=== PATIENT | female | born 1975 | race Caucasian/White ===

== ENCOUNTER 2018-10-07 14:15 | Inpatient (IN) | payer MEDICAID ==
[~2018-10-07] VITALS: Ht 162.6 cm; Wt 93.5 kg
--- NOTE | ~2018-10-07 | MORECARE ---
CASE MANAGEMENT DISCHARGE SUMMARY PATIENT: TEE LECHUGA UNIT: [id number] ADM DATE: 10/07/18 AGE: 42 : [birth year] SEX: F ROOM/BED: D.[facility] [place] AUTHOR: LEANNA WALKER PHYSICIAN: REFERRING PHYSICIAN: GARETT KIRK MD DATE OF SERVICE: 10/13/18 Discharge Plan Patient Name: TEE LECHUGA [facility] [facility] 1975 Planned Disposition: Home Anticipated Discharge Date: Discharge Date: Expected LOS: Initial Reviewer: [email or web address] Initial Review Date: 10/13/2018 Generated: 10/13/18 4:53 pm DCPIA - Discharge Planning Initial Assessment Updated by [email or web address]: Giovanny Trinh on 10/13/18 3:49 pm * Is the patient Alert and Oriented? Yes * How many steps to enter\exit or inside your home? * PCP DR. MAHMOOD [place] * Pharmacy [facility] * Preadmission Environment Home with Family * ADLs Independent * Equipment None * Other Equipment NO MEDICAL EQUIPMENT PROVIDER PREFERENCE * List name and contact numbers for known caregivers / representatives who currently or will assist patient after discharge: GARETT HAMILTON, BRIAN, * Verbal permission to speak to the caregivers and representatives has been obtained from the patient. Yes * Community resources currently utilized Other * Please name any agencies selected above. OUTPATIENT DIALYSIS, [facility], [facility], [address], [place] * Additional services required to return to the preadmission environment? No * Can the patient safely return to the preadmission environment? Yes * Has this patient been hospitalized within the prior 30 days at any hospital? No Last DP export: 10/13/18 2:46 p Patient Name: TEE LECHUGA Page 08155 at 1554 All edits/amendments must be made on the electronic document DICTATION DATE: 10/13/181552 RESIDENTIAL LIFE DIRECTOR: HASMUKH 10/13/18 155 RPT#: [id number] DC DATE: STATUS: ADM IN [facility] [address] [facility] [place] [address] END OF REPORT
--- NOTE | ~2018-10-07 | MORECARE ---
CASE MANAGEMENT DISCHARGE SUMMARY PATIENT: TEE LECHUGA UNIT: [id number] ADM DATE: 10/07/18 AGE: 42 : [birth year] SEX: F ROOM/BED: D.[facility] AUTHOR: LEANNA WALKER PHYSICIAN: REFERRING PHYSICIAN: GARETT KIRK MD DATE OF SERVICE: 10/13/18 Discharge Plan Patient Name: TEE LECHUGA Facility: [facility]:[place] : 1975 Planned Disposition: Home Anticipated Discharge Date: Discharge Date: Expected LOS: Initial Reviewer: [email or web address] Initial Review Date: 10/13/2018 Generated: 10/13/18 4:36 pm Patient Name: TEE LECHUGA Page 28216 at 1536 All edits/amendments must be made on the electronic document DICTATION DATE: 10/13/18 1535 MATERIALS HANDLING COORDINATOR: HASMUKH 10/13/18 1535 RPT#: [id number] DC DATE: STATUS: ADM IN [facility] [address] [place] [address] END OF REPORT
--- NOTE | ~2018-10-07 | EC ---
PATIENT:TEE LECHUGA DATE OF SERVICE: 10/07/18 SEX: F MEDICAL RECORD: [id number] DATE OF : [birth year] LOCATION:D.M2 D.211 AGE OF PATIENT: 42 ADMISSION DATE: 10/07/18 REFERRING PHYSICIAN: INTERPRETING PHYSICIAN: SINDY COHEN MD ECHOCARDIOGRAM REPORT ECHO CHARGES 4 ECHO COMPLETE Date: 10/14/18 CLINICAL DIAGNOSIS: HIGH TEMP/ FDC CATHETER IN RIGHT ATRIUM ASSESS FOR VEGATATION ECHOCARDIOGRAPHIC MEASUREMENTS (adult normal given) AC root (d.<3.7cm) 3.0 cm LV Septum d (<1.2 cm> 1.2 cm Valve Excursion 1.3 cm LV Septum (systole) 1.5 cm Left Atria (s.<4.0cm> 3.3 cm LVPW d(<1.2cm) 1.5 cm RV (d.<2.3cm) 5.2 cm LVPW (sytole) 1.7 cm LV diastole(<5.6CM) 5.6 cm MV E-F(>70mm/sec) cm LV systole 4.0 cm LVOT Diameter 1.9 cm MV exc.(>10mm) 1.9 cm Est.ejection fraction (50-75%) % DOPPLER: LVIT cm/sec A 85.0 cm/sec E 74.0 cm/sec LA cm/sec RVSP 38 mmHg LVOT 91 cm/sec AOP1/2T m/s Asc. Ao 136 cm/sec RVOT 86 cm/sec RA cm/sec PA 38 cm/sec AV Gradient Peak 7.42 mmHg AV Mean 5.14 mmHg AV Area 2.0 cm MV Gradient Peak 3.36 mmHg MV Mean 1.32 mmHg MV Area cm COMMENTS: Barrel Loader And Cleaner: Lorri LU Porcelain Mixer: 1 Dr. Cohen TAPE# PACS Pericardial Effusion N DATE OF SERVICE: 10/14/2018 PROCEDURE: Echocardiogram. FINDINGS: 1. Left ventricular chamber size is within normal limits. Left ventricular systolic function is normal. Overall ejection fraction estimated at 55%. 2. Left atrium, right atrium, and right ventricle chamber sizes are within normal limits. ECHOCARDIOGRAM REPORT [id number] TEE LECHUGA 3. Valvular structures have normal structure and motion. 4. Doppler interrogation reveals mild mitral regurgitation, mild tricuspid regurgitation, no other valvular insufficiency or stenosis. 5. No evidence of pericardial effusion or left ventricular thrombus. Pulmonary systolic pressure is estimated 38 mmHg. 6. No evidence of vegetative endocarditis. TRANSINT:[id number] Voice Confirmation ID: [id number] DOCUMENT ID: [id number] SINDY COHEN MD at 1108 CC: [id number] DICTATION DATE: 10/14/18 1603 MATERIAL HANDLER FLOORPERSON: 10/15/[address] [facility] [address] [place] [id number]
--- NOTE | ~2018-10-07 | OP ---
PATIENT NAME: TEE LECHUGA MEDICAL RECORD: [id number] :[birth year] LOCATION:D. D.2112 ADMISSION DATE:10/07/18 SURGEON: NORMA COOPER MD DATE OF OPERATION: 10/12/2018 SURGEON: Norma Cooper MD PREOPERATIVE DIAGNOSIS: End-stage renal disease. POSTOPERATIVE DIAGNOSIS: End-stage renal disease. PROCEDURES PERFORMED: 1. Insertion of tunneled left internal jugular HemoSplit catheter with fluoroscopic guidance. 2. An ultrasound-guided left internal jugular venous access. 3. Removal of right IJ Trialysis line. ANESTHESIA: General. COMPLICATIONS: None. SPECIMENS: None. Case was clean. OPERATIVE COURSE: After consent was obtained, the patient was taken to the operating room and placed in the supine position on the operating table. Next, general anesthesia was given. Timeout was taken to confirm the correct patient and procedure. The right and left chest and neck were prepped and draped in typical sterile fashion. The sutures were removed and the Trialysis line. The right IJ catheter was removed intact. A sterile gauze dressing and Tegaderms were placed. Pressure was held in the right internal jugular vein for approximately 5 minutes. At this time, the ultrasound probe was used to identify the left internal jugular vein and left common carotid artery. Under ultrasound guidance, the left internal jugular vein was cannulated. A guidewire was placed. The guidewire was advanced under fluoroscopy to the atriocaval junction. A skin incision was made to the needle stick site. The dilators were then passed over the wire in a standard Seldinger fashion. The dilator with breakaway sheath was then passed over the wire in a standard Seldinger fashion. Local anesthetic was injected into the left chest wall. Skin incision with a #15-blade scalpel, the HemoSplit device was tunneled from the skin incision site to the needle stick site. The dilator and wire were removed within the breakaway sheath. Under fluoroscopic guidance, the HemoSplit catheter was advanced through the breakaway sheath at the atriocaval junction and the breakaway sheath was removed. The needle stick site was closed with 3-0 Vicryl subcuticular suture. The HemoSplit was secured in place using 2-0 nylon suture and a sterile Tegaderm dressing. The HemoSplit was then flushed with 5000 units of heparin and 30 mL of normal saline. The patient tolerated procedure well and there were no complications occurred. OPERATIVE REPORT [id number] TEE LECHUGA At the end of the case, all needle and instrument counts were correct. The patient was transferred to the recovery room in satisfactory condition. TRANSINT:[id number] Voice Confirmation ID: [id number] DOCUMENT ID: [id number] NORMA COOPER MD at 2020 CC: [id number] DICTATION DATE: 10/12/18 160 CORRECTIONAL CASEWORK SPECIALIST: 10/12/18 193 ADM IN [facility] [address] [id number]
--- NOTE | ~2018-10-07 | MORECARE ---
CASE MANAGEMENT DISCHARGE SUMMARY PATIENT: TEE LECHUGA UNIT: [id number] ADM DATE: 10/07/18 AGE: 42 : [birth year] SEX: F ROOM/BED: D.2112 AUTHOR: LEANNA WALKER PHYSICIAN: REFERRING PHYSICIAN: GARETT KIRK MD DATE OF SERVICE: 10/13/18 Discharge Plan Patient Name: TEE LECHUGA Facility: [facility]:[place] : 1975 Planned Disposition: Home Anticipated Discharge Date: Discharge Date: Expected LOS: Initial Reviewer: [email or web address] Initial Review Date: 10/13/2018 Generated: 10/13/18 4:46 pm Last DP export: 10/13/18 2:36 p Patient Name: TEE LECHUGA Page 63069 at 1546 All edits/amendments must be made on the electronic document DICTATION DATE: 10/13/18 1546 SPECIAL POLICE OFFICER: HASMUKH 10/13/18 1546 RPT#: [id number] DC DATE: STATUS: ADM IN [facility] [address] [place] [address] END OF REPORT
--- NOTE | ~2018-10-07 | MORECARE ---
CASE MANAGEMENT DISCHARGE SUMMARY PATIENT: TEE LECHUGA UNIT: [id number] ADM DATE: 10/07/18 AGE: 42 : 77 SEX: F ROOM/BED: D.5465 AUTHOR: LEANNA WALKER PHYSICIAN: REFERRING PHYSICIAN: GARETT MENDENHALL MD DATE OF SERVICE: 10/19/18 Discharge Plan Patient Name: TEE LECHUGA Facility: [facility]:[place] : 1975 Planned Disposition: Home Anticipated Discharge Date: 10/18/18 Discharge Date: 10/18/2018 Expected LOS: 11 Initial Reviewer: [email or web address] Initial Review Date: 10/13/2018 Generated: 10/19/18 9:16 am Comments DCP- Discharge Planning Updated by [email or web address]: Giovanny Trinh on 10/13/18 3:[address] Patient Name: TEE LECHUGA Admission Status: ER Accout number: [id number] Admission Date: 10-07-2018 : 1975 Admission Diagnosis:[facility] COMPL OF SURGICALLY CREATED ARTERIOVENOUS FISTULA, Attending: Garett Mendenhall Current LOS: 6 Anticipated DC Date: Planned Disposition: Home Primary Insurance: MEDICAID [place] Discharge Planning Comments: CM MET WITH PT AND HER BOYFRIEND IN ROOM TO DISCUSS DISCHARGE PLANNING AND NEEDS. TEE LECHUGA provided verbal consent to discuss current and ongoing needs with/in the presence of: GARETT HAMILTON, BOYFRIEND. PT REPORTS LIVING AT HOME INDEPENDENTLY WITH HER BOYFRIEND; THE HOME IS A 24 FOOT CAMPER WITH 2 STEPS TO GET INSIDE. PT HAS NO MEDICAL EQUIPMENT AND NO OUTSIDE SERVICES ASSISTING IN THE HOME. PT GOES TO DIALYSIS ON MWF AT 4PM IN [place], [employer]YFRIEND TRANSPORTS. CM DISCUSSED AVAILABILITY OF HOME HEALTH, REHAB SERVICES AND MEDICAL EQUIPMENT. PT DENIES DISCHARGE NEEDS, REPORTS HER BOYFRIEND IS HER RIDE. PT PLANS TO DISCHARGE HOME WITH BOYFRIEND, HAS NO ANTICIPATED DISCHARGE NEEDS, BOYFRIEND TO TRANSPORT HOME AT DISCHARGE. CM TO FOLLOW AND ASSIST NEEDED. Ramp Agent: Giovanny Trinh DCPIA - Discharge Planning Initial Assessment Updated by [email or web address]: Giovanny Trinh on 10/13/18 3:49 pm * Is the patient Alert and Oriented? Yes * How many steps to enter\exit or inside your home? * PCP DR. MAHMOOD [place] * Pharmacy [facility] * Preadmission Environment Home with Family * ADLs Independent * Equipment None * Other Equipment NO MEDICAL EQUIPMENT PROVIDER PREFERENCE * List name and contact numbers for known caregivers / representatives who currently or will assist patient after discharge: GARETT HAMILTON, BOYFRIEND, * Verbal permission to speak to the caregivers and representatives has been obtained from the patient. Yes * Community resources currently utilized Other * Please name any agencies selected above. OUTPATIENT DIALYSIS, [facility], [facility], [address], BOYFRIEND DRIVES * Additional services required to return to the preadmission environment? No * Can the patient safely return to the preadmission environment? Yes * Has this patient been hospitalized within the prior 30 days at any hospital? No Last DP export: 10/13/18 3:09 p Patient Name: TEE LECHUGA Page 43403 at 0816 All edits/amendments must be made on the electronic document DICTATION DATE: 10/19/18814 AIR CONDITIONING MANAGER: HASMUKH 10/19/18814 RPT#: [id number] DC DATE:10/18/18 STATUS: DIS IN [facility] [address] [place] [address] END OF REPORT
--- NOTE | ~2018-10-07 | MORECARE ---
CASE MANAGEMENT DISCHARGE SUMMARY PATIENT: TEE LECHUGA UNIT: [id number] ADM DATE: 10/07/18 AGE: 42 : 77 SEX: F ROOM/BED: D.3829 AUTHOR: LEANNA WALKER PHYSICIAN: REFERRING PHYSICIAN: GARETT MENDENHALL MD DATE OF SERVICE: 10/13/18 Discharge Plan Patient Name: TEE LECHUGA Facility: [facility]:[place] : 1975 Planned Disposition: Home Anticipated Discharge Date: Discharge Date: Expected LOS: Initial Reviewer: [email or web address] Initial Review Date: 10/13/2018 Generated: 10/13/18 5:09 pm Comments DCP- Discharge Planning Updated by [email or web address]: Giovanny Trinh on 10/13/18 3:[address] Patient Name: TEE LECHUGA Admission Status: ER Accout number: [id number] Admission Date: 10-07-2018 : 1975 Admission Diagnosis:[facility] COMPL OF SURGICALLY CREATED ARTERIOVENOUS FISTULA, Attending: Garett Mendenhall Current LOS: 6 Anticipated DC Date: Planned Disposition: Home Primary Insurance: MEDICAID [place] Discharge Planning Comments: CM MET WITH PT AND HER BOYFRIEND IN ROOM TO DISCUSS DISCHARGE PLANNING AND NEEDS. TEE LECHUGA provided verbal consent to discuss current and ongoing needs with/in the presence of: GARETT HAMILTON, BOYFRIEND. PT REPORTS LIVING AT HOME INDEPENDENTLY WITH HER BOYFRIEND; THE HOME IS A 24 FOOT CAMPER WITH 2 STEPS TO GET INSIDE. PT HAS NO MEDICAL EQUIPMENT AND NO OUTSIDE SERVICES ASSISTING IN THE HOME. PT GOES TO DIALYSIS ON MWF AT 4PM IN [place], BOYFRIEND TRANSPORTS. CM DISCUSSED AVAILABILITY OF HOME HEALTH, REHAB SERVICES AND MEDICAL EQUIPMENT. PT DENIES DISCHARGE NEEDS, REPORTS HER BOYFRIEND IS HER RIDE. PT PLANS TO DISCHARGE HOME WITH BOYFRIEND, HAS NO ANTICIPATED DISCHARGE NEEDS, BOYFRIEND TO TRANSPORT HOME AT DISCHARGE. CM TO FOLLOW AND ASSIST NEEDED. Recreation Director: Giovanny Trinh DCPIA - Discharge Planning Initial Assessment Updated by [email or web address]: Giovanny Trinh on 10/13/18 3:49 pm * Is the patient Alert and Oriented? Yes * How many steps to enter\exit or inside your home? * PCP DR. MAHMOOD [place] * Pharmacy [facility] * Preadmission Environment Home with Family * ADLs Independent * Equipment None * Other Equipment NO MEDICAL EQUIPMENT PROVIDER PREFERENCE * List name and contact numbers for known caregivers / representatives who currently or will assist patient after discharge: GARETT HAMILTON, BOYFRIEND, * Verbal permission to speak to the caregivers and representatives has been obtained from the patient. Yes * Community resources currently utilized Other * Please name any agencies selected above. OUTPATIENT DIALYSIS, [facility], [facility], [address], [employer]END DRIVES * Additional services required to return to the preadmission environment? No * Can the patient safely return to the preadmission environment? Yes * Has this patient been hospitalized within the prior 30 days at any hospital? No Last DP export: 10/13/18 2:53 p Patient Name: TEE LECHUGA Page 46884 at 1609 All edits/amendments must be made on the electronic document DICTATION DATE: 10/13/181607 LOAN UNDERWRITER: HASMUKH 10/13/181607 RPT#: [id number] DC DATE: STATUS: ADM IN [facility] [address] [place] [address] END OF REPORT
[2018-10-07 15:58] LABS: BASOPHILS 0 % (0-2); IMMATURE GRANULOCYTES 0.3 % (0-5); LYMPHOCYTES 11.3 % (15-50); MCH 27.6 pg (26.0-34.0); MCHC 30.8 g/dL (31.0-37.0); MCV 89.6 fL (80.0-100.0); MEAN PLATELET VOLUME 8.9 fL (7.4-10.4); MONOCYTES 3.2 % (2-11); NEUTROPHILS 84.2 % (40-80); PLATELET COUNT 292 10x3/uL (130-400); RBC 2.21 10x6/uL (4.00-5.40); RDW 16.1 % (11.5-14.5); WBC 7.9 10x3/uL (4.8-10.8)
[2018-10-07 16:00] LABS: ANION GAP 14.7 mmol/L (8-16); BILIRUBIN - TOTAL 0.4 mg/dL (0.2-1.3); CALCIUM 8.2 mg/dL (8.5-10.1); CARBON DIOXIDE 26.9 mmol/L (21.0-32.0); CREATININE - SERUM 6.5 mg/dL (0.6-1.3); POTASSIUM - SERUM 3.6 mmol/L (3.5-5.1); PROTEIN - SERUM 7.7 g/dL (6.4-8.2)
[2018-10-07 16:02] LABS: HEMATOCRIT 19.8 % (36.0-48.0); HEMOGLOBIN 6.1 g/dL (12-16)
[2018-10-07 17:11] LABS: APTT 37.6 SECONDS (22.8-39.4); INR 1.23 (0.85-1.17); PROTIME 14.9 SECONDS (11.6-15.0)
[2018-10-07 17:11] LABS: % SATURATION 9 % (15-55); IRON 15 ug/dl (35-150); TOTAL IRON BIND CAPACITY 163 ug/dl (260-445); UNSAT IRON BIND CAPACITY 148 ug/dl (150-375)
[2018-10-07 18:51] VITALS: BP 120/81
[2018-10-07 20:00] VITALS: BP 111/67
[2018-10-07] MEDS ORDERED: NEURONTIN600 MG PO (20:53)
[2018-10-07] MEDS ORDERED: CYCLOBENZAPRINE10 MG PO (20:53)
[2018-10-07] MEDS ORDERED: LIPITOR40 MG PO (20:54)
[2018-10-07] MEDS ORDERED: ISOSORBIDE MONO60 M1 PO (20:54)
[2018-10-07] MEDS ORDERED: VENTOLIN HFA18 GM INH (20:55)
[2018-10-07] MEDS ORDERED: NITROSTAT0.4 MG SL (20:56)
[2018-10-07] MEDS ORDERED: EZFE 200200 MG PO (20:59)
[2018-10-08 03:10] LABS: APPEARANCE HAZY (CLEAR); BILIRUBIN NEGATIVE (NEGATIVE); COLOR YELLOW (YELLOW); GLUCOSE NEGATIVE (NEGATIVE); KETONE NEGATIVE (NEGATIVE); NITRITE NEGATIVE (NEGATIVE); PROTEIN TRACE mg/dL (NEGATIVE); UROBILINOGEN NORMAL (NORMAL)
[2018-10-08 03:11] LABS: BACTERIA FEW /hpf (NONE SEEN); EPITHELIAL CELLS 0-5 /hpf (0-5); RED CELLS - URINE 0-5 /hpf (0-5); WHITE CELLS - URINE 25-50 /hpf (0-5); YEAST <1+ /hpf (NONE SEEN)
[2018-10-08 03:31] VITALS: BP 111/67; BMI 34.4
[2018-10-08 05:20] LABS: BASOPHILS 0.1 % (0-2); EOSINOPHILS 1.3 % (0-7); IMMATURE GRANULOCYTES 0.5 % (0-5); LYMPHOCYTES 12.1 % (15-50); MCH 28.2 pg (26.0-34.0); MCHC 31.3 g/dL (31.0-37.0); MEAN PLATELET VOLUME 8.7 fL (7.4-10.4); MONOCYTES 4.7 % (2-11); NEUTROPHILS 81.3 % (40-80); PLATELET COUNT 264 10x3/uL (130-400); RDW 16.3 % (11.5-14.5); WBC 8.8 10x3/uL (4.8-10.8)
[2018-10-08 05:21] LABS: HEMATOCRIT 19.8 % (36.0-48.0); HEMOGLOBIN 6.2 g/dL (12-16)
[2018-10-08 05:36] LABS: ANION GAP 18.9 mmol/L (8-16); CALCIUM 8.1 mg/dL (8.5-10.1); CARBON DIOXIDE 22.9 mmol/L (21.0-32.0); CREATININE - SERUM 6.5 mg/dL (0.6-1.3); PHOSPHOROUS 7.4 mg/dL (2.5-4.9); POTASSIUM - SERUM 3.8 mmol/L (3.5-5.1)
[2018-10-08 09:19] VITALS: BMI 34.3
[2018-10-08 09:56] VITALS: BP 107/59
[2018-10-08 11:23] VITALS: Ht 162.6 cm; Wt 93.5 kg
[2018-10-08 16:17] VITALS: BP 140/78
[2018-10-08 18:29] LABS: INR 1.3 (0.85-1.17); PROTIME 15.7 SECONDS (11.6-15.0)
[2018-10-08 20:30] VITALS: BP 125/69
[2018-10-09 04:30] VITALS: BP 131/70
[2018-10-09 06:43] LABS: BASOPHILS 0.1 % (0-2); EOSINOPHILS 1.2 % (0-7); HEMATOCRIT 22.9 % (36.0-48.0); IMMATURE GRANULOCYTES 0.2 % (0-5); LYMPHOCYTES 11.3 % (15-50); MCH 27.9 pg (26.0-34.0); MCHC 31.9 g/dL (31.0-37.0); MONOCYTES 5.3 % (2-11); NEUTROPHILS 81.9 % (40-80); PLATELET COUNT 236 10x3/uL (130-400); RBC 2.62 10x6/uL (4.00-5.40); RDW 17.3 % (11.5-14.5); WBC 9.2 10x3/uL (4.8-10.8)
[2018-10-09 06:57] LABS: HEMOGLOBIN 7.3 g/dL (12-16); MCV 87.4 fL (80.0-100.0)
[2018-10-09 07:06] LABS: ANION GAP 16.4 mmol/L (8-16); CALCIUM 8.2 mg/dL (8.5-10.1); CARBON DIOXIDE 25.7 mmol/L (21.0-32.0); CREATININE - SERUM 5.5 mg/dL (0.6-1.3); PHOSPHOROUS 6.4 mg/dL (2.5-4.9); POTASSIUM - SERUM 4.1 mmol/L (3.5-5.1)
[2018-10-09 09:23] VITALS: BP 107/57
[2018-10-09 11:53] VITALS: BP 120/68
[2018-10-09 15:07] VITALS: BP 93/52
[2018-10-09 20:30] VITALS: BP 100/52
[2018-10-10 05:49] LABS: BASOPHILS 0.1 % (0-2); EOSINOPHILS 1.3 % (0-7); HEMATOCRIT 21.3 % (36.0-48.0); IMMATURE GRANULOCYTES 0.4 % (0-5); LYMPHOCYTES 10.5 % (15-50); MCH 27.2 pg (26.0-34.0); MCV 87.7 fL (80.0-100.0); MEAN PLATELET VOLUME 8.8 fL (7.4-10.4); MONOCYTES 5.5 % (2-11); NEUTROPHILS 82.2 % (40-80); PLATELET COUNT 218 10x3/uL (130-400); RBC 2.43 10x6/uL (4.00-5.40)
[2018-10-10 05:59] LABS: HEMOGLOBIN 6.6 g/dL (12-16)
[2018-10-10 06:16] LABS: ANION GAP 15.9 mmol/L (8-16); CALCIUM 8.3 mg/dL (8.5-10.1); CARBON DIOXIDE 25.8 mmol/L (21.0-32.0); CREATININE - SERUM 6.4 mg/dL (0.6-1.3); PHOSPHOROUS 7.3 mg/dL (2.5-4.9); POTASSIUM - SERUM 3.7 mmol/L (3.5-5.1)
[2018-10-10 07:57] VITALS: BP 110/56
[2018-10-10 15:43] VITALS: BP 106/61
[2018-10-10 22:11] VITALS: BP 115/66
[2018-10-11 01:13] VITALS: BP 110/63
[2018-10-11 02:35] LABS: BASOPHILS 0 % (0-2); EOSINOPHILS 1.9 % (0-7); HEMOGLOBIN 8.9 g/dL (12-16); IMMATURE GRANULOCYTES 0.3 % (0-5); LYMPHOCYTES 10.1 % (15-50); MCHC 31.8 g/dL (31.0-37.0); MCV 88.1 fL (80.0-100.0); MEAN PLATELET VOLUME 8.9 fL (7.4-10.4); MONOCYTES 5.4 % (2-11); NEUTROPHILS 82.3 % (40-80); PLATELET COUNT 239 10x3/uL (130-400); RBC 3.18 10x6/uL (4.00-5.40); RDW 16.2 % (11.5-14.5); WBC 9.2 10x3/uL (4.8-10.8)
[2018-10-11 05:18] VITALS: BP 100/54
[2018-10-11 07:20] LABS: ANION GAP 13.5 mmol/L (8-16); CALCIUM 8.7 mg/dL (8.5-10.1); CARBON DIOXIDE 28.9 mmol/L (21.0-32.0); CREATININE - SERUM 5.3 mg/dL (0.6-1.3); PHOSPHOROUS 5.7 mg/dL (2.5-4.9); POTASSIUM - SERUM 3.4 mmol/L (3.5-5.1)
[2018-10-11 07:30] LABS: BASOPHILS 0.1 % (0-2); EOSINOPHILS 1.5 % (0-7); HEMATOCRIT 29.1 % (36.0-48.0); HEMOGLOBIN 9.2 g/dL (12-16); IMMATURE GRANULOCYTES 0.1 % (0-5); LYMPHOCYTES 9.7 % (15-50); MCH 27.9 pg (26.0-34.0); MCHC 31.6 g/dL (31.0-37.0); MCV 88.2 fL (80.0-100.0); MEAN PLATELET VOLUME 9.7 fL (7.4-10.4); MONOCYTES 5.3 % (2-11); NEUTROPHILS 83.3 % (40-80); PLATELET COUNT 215 10x3/uL (130-400); RDW 16.4 % (11.5-14.5); WBC 8.2 10x3/uL (4.8-10.8)
[2018-10-11 08:39] VITALS: BP 126/59
[2018-10-11 11:16] VITALS: BP 138/65
[2018-10-11 15:48] VITALS: BP 132/62
[2018-10-11 21:07] VITALS: BP 104/56
[2018-10-12] VITALS (8 sets, daily range): BP systolic 87–112; BP diastolic 46–62
[2018-10-12 05:41] LABS: BASOPHILS 0.2 % (0-2); EOSINOPHILS 2.1 % (0-7); HEMATOCRIT 24.4 % (36.0-48.0); HEMOGLOBIN 7.7 g/dL (12-16); IMMATURE GRANULOCYTES 0.3 % (0-5); LYMPHOCYTES 11.9 % (15-50); MCH 27.8 pg (26.0-34.0); MCHC 31.6 g/dL (31.0-37.0); MCV 88.1 fL (80.0-100.0); MEAN PLATELET VOLUME 8.9 fL (7.4-10.4); MONOCYTES 7.2 % (2-11); NEUTROPHILS 78.3 % (40-80); PLATELET COUNT 219 10x3/uL (130-400); RBC 2.77 10x6/uL (4.00-5.40); RDW 16.2 % (11.5-14.5); WBC 6.6 10x3/uL (4.8-10.8)
[2018-10-12 06:01] LABS: ANION GAP 14.4 mmol/L (8-16); CALCIUM 8.3 mg/dL (8.5-10.1); CARBON DIOXIDE 26.9 mmol/L (21.0-32.0); CREATININE - SERUM 6.1 mg/dL (0.6-1.3); POTASSIUM - SERUM 3.3 mmol/L (3.5-5.1); VANCOMYCIN - RANDOM 26.4 ug/mL (10.0-20.0)
[2018-10-12 09:19] LABS: HEPATITIS C ANTIBODY 0.1 S/CO RAT (0.0-0.9)
[2018-10-12 18:58] LABS: BASOPHILS 0.1 % (0-2); EOSINOPHILS 1.1 % (0-7); IMMATURE GRANULOCYTES 0.3 % (0-5); LYMPHOCYTES 10.7 % (15-50); MCH 28.8 pg (26.0-34.0); MCHC 32.8 g/dL (31.0-37.0); MCV 87.9 fL (80.0-100.0); MEAN PLATELET VOLUME 9.1 fL (7.4-10.4); MONOCYTES 5.5 % (2-11); NEUTROPHILS 82.3 % (40-80); RDW 15.5 % (11.5-14.5); WBC 7.3 10x3/uL (4.8-10.8)
[2018-10-12 19:00] LABS: HEMOGLOBIN 10.5 g/dL (12-16); PLATELET COUNT 168 10x3/uL (130-400); RBC 3.64 10x6/uL (4.00-5.40)
[2018-10-12 19:11] LABS: ANION GAP 11.7 mmol/L (8-16); CALCIUM 8.5 mg/dL (8.5-10.1); CARBON DIOXIDE 27.7 mmol/L (21.0-32.0); POTASSIUM - SERUM 3.4 mmol/L (3.5-5.1)
[2018-10-12 19:12] LABS: CREATININE - SERUM 4.2 mg/dL (0.6-1.3)
[2018-10-13 03:55] VITALS: BP 97/58
[2018-10-13 05:26] LABS: BASOPHILS 0.2 % (0-2); EOSINOPHILS 1.9 % (0-7); HEMOGLOBIN 9.2 g/dL (12-16); IMMATURE GRANULOCYTES 0.3 % (0-5); LYMPHOCYTES 8.5 % (15-50); MCH 28.3 pg (26.0-34.0); MCHC 31.7 g/dL (31.0-37.0); MCV 89.2 fL (80.0-100.0); MEAN PLATELET VOLUME 9.2 fL (7.4-10.4); MONOCYTES 9.6 % (2-11); NEUTROPHILS 79.5 % (40-80); PLATELET COUNT 181 10x3/uL (130-400); RBC 3.25 10x6/uL (4.00-5.40); WBC 6.3 10x3/uL (4.8-10.8)
[2018-10-13 05:53] LABS: ANION GAP 12.8 mmol/L (8-16); CALCIUM 8.3 mg/dL (8.5-10.1); CARBON DIOXIDE 27.4 mmol/L (21.0-32.0); CREATININE - SERUM 4.8 mg/dL (0.6-1.3); PHOSPHOROUS 5.5 mg/dL (2.5-4.9); POTASSIUM - SERUM 3.2 mmol/L (3.5-5.1); VANCOMYCIN - RANDOM 20.6 ug/mL (10.0-20.0)
[2018-10-13 07:41] VITALS: BP 102/63
[2018-10-13 11:27] VITALS: BP 111/60
[2018-10-13 15:38] VITALS: BP 105/61
[2018-10-13 21:54] VITALS: BP 106/67
[2018-10-14] VITALS (7 sets, daily range): BP systolic 105–129; BP diastolic 54–71
[2018-10-14 05:28] LABS: BASOPHILS 0.1 % (0-2); EOSINOPHILS 1.4 % (0-7); HEMATOCRIT 29.4 % (36.0-48.0); HEMOGLOBIN 9.3 g/dL (12-16); IMMATURE GRANULOCYTES 0.3 % (0-5); LYMPHOCYTES 11.9 % (15-50); MCH 28.1 pg (26.0-34.0); MCHC 31.6 g/dL (31.0-37.0); MCV 88.8 fL (80.0-100.0); MEAN PLATELET VOLUME 9.1 fL (7.4-10.4); MONOCYTES 8.7 % (2-11); NEUTROPHILS 77.6 % (40-80); PLATELET COUNT 177 10x3/uL (130-400); RBC 3.31 10x6/uL (4.00-5.40); RDW 15.9 % (11.5-14.5)
[2018-10-14 05:35] LABS: ANION GAP 18.5 mmol/L (8-16); CALCIUM 8.3 mg/dL (8.5-10.1); CARBON DIOXIDE 23.9 mmol/L (21.0-32.0); POTASSIUM - SERUM 3.4 mmol/L (3.5-5.1); VANCOMYCIN - RANDOM 19.8 ug/mL (10.0-20.0)
[2018-10-14 05:40] LABS: CREATININE - SERUM 6.1 mg/dL (0.6-1.3)
[2018-10-15 03:50] VITALS: BP 117/54
[2018-10-15 05:36] LABS: BASOPHILS 0.2 % (0-2); EOSINOPHILS 2.2 % (0-7); HEMATOCRIT 28.2 % (36.0-48.0); IMMATURE GRANULOCYTES 0.3 % (0-5); LYMPHOCYTES 19.2 % (15-50); MCH 28.2 pg (26.0-34.0); MCHC 31.9 g/dL (31.0-37.0); MCV 88.4 fL (80.0-100.0); MEAN PLATELET VOLUME 9.6 fL (7.4-10.4); MONOCYTES 9.4 % (2-11); NEUTROPHILS 68.7 % (40-80); PLATELET COUNT 168 10x3/uL (130-400); RBC 3.19 10x6/uL (4.00-5.40); RDW 16.1 % (11.5-14.5); WBC 5.8 10x3/uL (4.8-10.8)
[2018-10-15 06:08] LABS: CALCIUM 8.7 mg/dL (8.5-10.1); CARBON DIOXIDE 26.2 mmol/L (21.0-32.0); CREATININE - SERUM 5.2 mg/dL (0.6-1.3); PHOSPHOROUS 5.3 mg/dL (2.5-4.9); POTASSIUM - SERUM 3.2 mmol/L (3.5-5.1)
[2018-10-15 08:06] VITALS: BP 115/55
[2018-10-15 11:04] VITALS: BP 131/77
[2018-10-15 12:52] LABS: HEMATOCRIT 30.5 % (36.0-48.0)
[2018-10-15 15:50] VITALS: BP 164/80
[2018-10-15 19:45] VITALS: BP 117/71
[2018-10-15 23:55] VITALS: BP 117/80
[2018-10-16 03:45] VITALS: BP 125/79
[2018-10-16 06:32] LABS: BASOPHILS 0.2 % (0-2); EOSINOPHILS 2.3 % (0-7); HEMATOCRIT 28.8 % (36.0-48.0); HEMOGLOBIN 9.3 g/dL (12-16); IMMATURE GRANULOCYTES 0.6 % (0-5); LYMPHOCYTES 19.7 % (15-50); MCH 28.1 pg (26.0-34.0); MCHC 32.3 g/dL (31.0-37.0); MEAN PLATELET VOLUME 9.4 fL (7.4-10.4); NEUTROPHILS 70.2 % (40-80); PLATELET COUNT 166 10x3/uL (130-400); RBC 3.31 10x6/uL (4.00-5.40); RDW 15.8 % (11.5-14.5); WBC 5.2 10x3/uL (4.8-10.8)
[2018-10-16 06:39] LABS: CARBON DIOXIDE 23.2 mmol/L (21.0-32.0); CREATININE - SERUM 6.2 mg/dL (0.6-1.3); POTASSIUM - SERUM 3.2 mmol/L (3.5-5.1)
[2018-10-16 08:15] VITALS: BP 108/64
[2018-10-16 11:34] VITALS: BP 125/62
[2018-10-16 16:08] VITALS: BP 125/70
[2018-10-16 19:55] VITALS: BP 112/70
[2018-10-16 23:55] VITALS: BP 123/51
[2018-10-17 04:00] VITALS: BP 110/63
[2018-10-17 04:23] LABS: BASOPHILS 0 % (0-2); HEMATOCRIT 27.3 % (36.0-48.0); HEMOGLOBIN 8.9 g/dL (12-16); IMMATURE GRANULOCYTES 0.6 % (0-5); LYMPHOCYTES 23.4 % (15-50); MCHC 32.6 g/dL (31.0-37.0); MCV 85.8 fL (80.0-100.0); MEAN PLATELET VOLUME 9.2 fL (7.4-10.4); PLATELET COUNT 179 10x3/uL (130-400); RBC 3.18 10x6/uL (4.00-5.40); RDW 15.5 % (11.5-14.5)
[2018-10-17 04:46] LABS: ANION GAP 16.8 mmol/L (8-16); CALCIUM 8.1 mg/dL (8.5-10.1); CARBON DIOXIDE 23.7 mmol/L (21.0-32.0); CREATININE - SERUM 6.5 mg/dL (0.6-1.3); PHOSPHOROUS 7.4 mg/dL (2.5-4.9); POTASSIUM - SERUM 3.5 mmol/L (3.5-5.1); VANCOMYCIN - RANDOM 19.6 ug/mL (10.0-20.0)
[2018-10-17 08:26] VITALS: BP 122/74
[2018-10-17 16:43] VITALS: BP 122/69
[2018-10-17 20:57] VITALS: BP 138/81
[2018-10-18 00:29] VITALS: BP 122/77
[2018-10-18 04:57] VITALS: BP 116/56
[2018-10-18 05:01] LABS: BASOPHILS 0.2 % (0-2); EOSINOPHILS 2.6 % (0-7); HEMATOCRIT 27.1 % (36.0-48.0); HEMOGLOBIN 8.9 g/dL (12-16); IMMATURE GRANULOCYTES 0.4 % (0-5); LYMPHOCYTES 25.4 % (15-50); MCH 28.1 pg (26.0-34.0); MCHC 32.8 g/dL (31.0-37.0); MCV 85.5 fL (80.0-100.0); MEAN PLATELET VOLUME 9.3 fL (7.4-10.4); MONOCYTES 9.7 % (2-11); NEUTROPHILS 61.7 % (40-80); PLATELET COUNT 188 10x3/uL (130-400); RBC 3.17 10x6/uL (4.00-5.40); RDW 15.4 % (11.5-14.5); WBC 4.5 10x3/uL (4.8-10.8)
[2018-10-18 05:20] LABS: ANION GAP 11.9 mmol/L (8-16); CARBON DIOXIDE 28.8 mmol/L (21.0-32.0); POTASSIUM - SERUM 3.7 mmol/L (3.5-5.1); VANCOMYCIN - RANDOM 20.7 ug/mL (10.0-20.0)
[2018-10-18 05:26] LABS: CREATININE - SERUM 4.7 mg/dL (0.6-1.3)
[2018-10-18] MEDS ORDERED: DIFLUCAN100 MG PO (06:48)
[2018-10-18] MEDS ORDERED: PHOSLO667 MG PO (06:49)
[2018-10-18] MEDS ORDERED: NORCO-7.5 PO (06:49)
[2018-10-18 07:56] VITALS: BP 110/70
== END 2018-10-18 11:34 | disposition home or self-care (01) | DRG 314 ==
LOC: D.ER 14:15 → D.EDHOLD 17:00 → D.M2 17:00
PROVIDERS: Family Medicine; Internal Medicine Nephrology; Surgery
PROC: 02HV33Z Insertion of Infusion Device into Superior Vena Cava, Percutaneous Approach (ICD-10-PCS; 2018-10-12)
PROC: B5181ZA Fluoroscopy of Superior Vena Cava using Low Osmolar Contrast, Guidance (ICD-10-PCS; 2018-10-12)
PROC: 05PY33Z Removal of Infusion Device from Upper Vein, Percutaneous Approach (ICD-10-PCS; 2018-10-12)
PROC: 0JH63XZ Insertion of Tunneled Vascular Access Device into Chest Subcutaneous Tissue and Fascia, Percutaneous Approach (ICD-10-PCS; principal; 2018-10-12 12:45)
DX: T82.590A Other mechanical complication of surgically created arteriovenous fistula, initial encounter (principal); N18.6 End stage renal disease; I12.0 Hypertensive chronic kidney disease with stage 5 chronic kidney disease or end stage renal disease; S37.012A Minor contusion of left kidney, initial encounter; Y83.8 Other surgical procedures as the cause of abnormal reaction of the patient, or of later complication, without mention of misadventure at the time of the procedure; E11.22 Type 2 diabetes mellitus with diabetic chronic kidney disease; Z99.2 Dependence on renal dialysis; N20.0 Calculus of kidney; D64.9 Anemia, unspecified